=== PATIENT | male | born 1945 | race Caucasian/White ===

== ENCOUNTER 2017-11-17 13:08 | Inpatient (IN) | payer OTHER ==
[~2017-11-17] VITALS: Ht 172.7 cm; Wt 71.7 kg
[2017-11-17] MEDS ORDERED: NORVASC10 MG PO (13:20)
[2017-11-17] MEDS ORDERED: LIPITOR40 MG PO (13:21)
[2017-11-17] MEDS ORDERED: METFORMIN HCL500 M2 PO (13:21)
[2017-11-17] MEDS ORDERED: SINGULAIR10 MG PO (13:22)
[2017-11-26] MEDS ORDERED: PROSCAR5 MG PO (09:36)
[2017-11-26] MEDS ORDERED: CEFDINIR300 MG PO (09:38)
[2017-11-26] MEDS ORDERED: ALBUTEROL0.63 MG/3 IH (09:55)
[2017-11-26] MEDS ORDERED: OMEPRAZOLE20 M1 PO (09:58)
== END 2017-11-26 14:26 | disposition home or self-care (01) | DRG 872 ==
LOC: ER 13:08 → MEDJ 21:04
PROC: 3E0F7GC Introduction of Other Therapeutic Substance into Respiratory Tract, Via Natural or Artificial Opening (ICD-10-PCS; principal; 2017-11-17)
PROC: 4A033R1 Measurement of Arterial Saturation, Peripheral, Percutaneous Approach (ICD-10-PCS; 2017-11-17)
PROC: BW21ZZZ Computerized Tomography (CT Scan) of Abdomen and Pelvis (ICD-10-PCS; 2017-11-17)
DX: A41.51 Sepsis due to Escherichia coli [E. coli] (principal); N39.0 Urinary tract infection, site not specified; N41.0 Acute prostatitis; R31.0 Gross hematuria; J45.998 Other asthma; K29.60 Other gastritis without bleeding